=== PATIENT | female | born 1945 | race Caucasian/White ===

== ENCOUNTER 2016-12-24 15:05 | Inpatient (IN) | payer OTHER ==
[2016-12-24] MEDS ORDERED: CARDIZEM INJ 125 MG VIAL ONE (17:22)
[2016-12-24] MEDS ORDERED: NS 100 ML IV 100 ML IV ONE (17:22)
[2016-12-24] MEDS ORDERED: CARDIZEM INJ 50 MG VIAL ONE (17:29)
[2016-12-24] MEDS ORDERED: CARDIZEM INJ 50 MG VIAL IVP ONE (17:39)
[2016-12-24] MEDS: NS 1000 ML 1,000 ML IV SCH (17:41)
[2016-12-24] MEDS: CARDIZEM INJ 125 MG VIAL 125 MG in NS 100 ML IV 100 ML IV PRN (17:42)
[2016-12-24 17:48] LABS: BASOPHILS # (AUTO) 0.1 X10^3/uL (0.0-0.1); EOSINOPHILS % (AUTO) 0.7 % (0.9-2.9); HEMATOCRIT 32.1 % (36.0-47.0); LYMPHOCYTES # (AUTO) 0.9 X10^3/uL (1.3-2.9); LYMPHOCYTES % (AUTO) 16.6 % (21.0-51.0); MEAN CORPUSCULAR HEMOGLOBIN 24.5 pg (27.0-34.0); MEAN CORPUSCULAR HGB CONC 31.2 g/dL (33.0-35.0); MEAN CORPUSCULAR VOLUME 78.5 fL (80.0-100.0); MEAN PLATELET VOLUME 8.8 fL (7.4-11.0); MONOCYTES # (AUTO) 0.4 x10^3/uL (0.3-0.8); MONOCYTES % (AUTO) 7.6 % (0.0-13.0); NEUTROPHILS # (AUTO) 4.2 x10^3/uL (2.2-4.8); NEUTROPHILS % (AUTO) 74.1 % (42.0-75.0); PLATELET COUNT 190 X10^3/uL (150.0-450.0); RED BLOOD COUNT 4.09 X10^6/uL (3.5-5.4); RED CELL DISTRIBUTION WIDTH 24.2 % (11.6-16.5); WHITE BLOOD COUNT 5.7 X10^3/uL (3.6-10.0)
[2016-12-24 18:05] LABS: ALANINE AMINOTRANSFERASE 23 Units/L (12-78); ALBUMIN 2.8 g/dL (3.4-5.0); ALKALINE PHOSPHATASE 72 Units/L (46-116); ASPARTATE AMINO TRANSFERASE 26 Units/L (15-37); BLOOD UREA NITROGEN 15 mg/dL (7-18); CARBON DIOXIDE 30.7 mmol/L (21-32); CHLORIDE 103 mmol/L (98-107); CKMB % 2.7 % (<4); CREATINE KINASE 37 Units/L (26-192); CREATINE KINASE MB < 1.0 ng/mL (0-4.0); CREATININE 0.92 mg/dL (0.55-1.02); GLUCOSE 86 mg/dL (65-99); SODIUM 141 mmol/L (136-145); TOTAL PROTEIN 7.7 g/dL (6.4-8.2); TROPONIN I 0.19 ng/mL (0-1.5); eGFR BLACK RACES > 60 (>60); eGFR NON BLACK RACES > 60 (>60)
[2016-12-24 18:08] LABS: ANISOCYTOSIS 1+; PLATELET MORPHOLOGY COMMENT NORMAL (NORMAL); POIKILOCYTOSIS SLIGHT
[2016-12-24 18:35] VITALS: BMI 27.0
[2016-12-24] MEDS ORDERED: K-DUR TAB 20 MEQ PO PRN (18:40)
[2016-12-24] MEDS ORDERED: POTASSIUM CHLORIDE LIQ 20 MEQ UDC PO PRN (18:40)
[2016-12-24] MEDS ORDERED: K-RIDER 10 MEQ/NS 100 ML 10 MEQ/100 ML BAG IV PRN (18:40)
--- NOTE | 2016-12-24 19:05 | RAD ---
HISTORY: Atrial flutter Study: PA and lateral views of the chest. Comparison: None. Findings: Cardiomegaly. No focal consolidations, pleural effusions or pneumothorax. Osseous structures demonst rate no acute abnormality. Hyperexpansion. IMPRESSION: 1. No acute cardiopulmonary process. 2. Cardiomegaly. 3. Findings consistent with COPD. Reported By:
[2016-12-24] MEDS ORDERED: NEXTERONE IV 150 MG PREMIX* 100 ML IV ONE (20:48)
[2016-12-24] MEDS ORDERED: NEXTERONE IV 360 MG PREMIX* 200 ML IV PRN (20:49)
[2016-12-24] MEDS: K-LYTE EFFERVESCENT PO PRN (21:38)
[2016-12-24] MEDS: PROVENTIL NEB TX 0.083% 2.5MG/ 3ML NEB SCH (22:52)
[2016-12-24] MEDS: NORCO 5/325 MG TAB PO PRN (23:07)
[2016-12-24] MEDS: RESTORIL CAP 15 MG PO PRN (23:07)
[2016-12-24] MEDS: ROBITUSSIN DM PO PRN (23:25)
[2016-12-24 23:39] LABS: CKMB % 2.9 % (<4); CREATINE KINASE 35 Units/L (26-192); CREATINE KINASE MB < 1.0 ng/mL (0-4.0)
[2016-12-25] MEDS: NORCO 5/325 MG TAB PO PRN ×3 (05:25→20:28)
[2016-12-25] MEDS: NS 1000 ML 1,000 ML IV SCH ×3 (05:26→20:29)
[2016-12-25] MEDS: NEXTERONE IV 360 MG PREMIX* 200 ML IV PRN ×2 (05:31→15:12)
[2016-12-25] MEDS: CARDIZEM INJ 125 MG VIAL 125 MG in NS 100 ML IV 100 ML IV PRN ×4 (05:39→20:21)
[2016-12-25] MEDS ORDERED: NEXTERONE IV 360 MG PREMIX* 200 ML IV ONE (05:42)
[2016-12-25 06:22] LABS: BASOPHILS % (AUTO) 0.6 % (0.2-1.0); EOSINOPHILS % (AUTO) 0.6 % (0.9-2.9); HEMATOCRIT 29.8 % (36.0-47.0); HEMOGLOBIN 9.4 g/dL (12.0-16.0); LYMPHOCYTES # (AUTO) 0.9 X10^3/uL (1.3-2.9); LYMPHOCYTES % (AUTO) 14.9 % (21.0-51.0); MEAN CORPUSCULAR HEMOGLOBIN 25.4 pg (27.0-34.0); MEAN CORPUSCULAR HGB CONC 31.5 g/dL (33.0-35.0); MEAN CORPUSCULAR VOLUME 80.6 fL (80.0-100.0); MEAN PLATELET VOLUME 9.1 fL (7.4-11.0); MONOCYTES # (AUTO) 0.5 x10^3/uL (0.3-0.8); MONOCYTES % (AUTO) 8.3 % (0.0-13.0); NEUTROPHILS # (AUTO) 4.7 x10^3/uL (2.2-4.8); NEUTROPHILS % (AUTO) 75.6 % (42.0-75.0); PLATELET COUNT 176 X10^3/uL (150.0-450.0); RED BLOOD COUNT 3.69 X10^6/uL (3.5-5.4); RED CELL DISTRIBUTION WIDTH 24.1 % (11.6-16.5); WHITE BLOOD COUNT 6.2 X10^3/uL (3.6-10.0)
[2016-12-25 07:22] LABS: ALANINE AMINOTRANSFERASE 25 Units/L (12-78); ALBUMIN 2.7 g/dL (3.4-5.0); ALKALINE PHOSPHATASE 66 Units/L (46-116); ASPARTATE AMINO TRANSFERASE 28 Units/L (15-37); BLOOD UREA NITROGEN 16 mg/dL (7-18); CALCIUM 8.4 mg/dL (8.5-10.1); CARBON DIOXIDE 27.8 mmol/L (21-32); CHLORIDE 103 mmol/L (98-107); CKMB % 2.9 % (<4); COR CA(FOR HYPOALB) 9.4 mg/dL (8.5-10.1); CREATINE KINASE 35 Units/L (26-192); CREATINE KINASE MB < 1.0 ng/mL (0-4.0); CREATININE 1.01 mg/dL (0.55-1.02); GLUCOSE 105 mg/dL (65-99); SODIUM 140 mmol/L (136-145); TOTAL PROTEIN 7.5 g/dL (6.4-8.2); eGFR BLACK RACES > 60 (>60); eGFR NON BLACK RACES 58 (>60)
[2016-12-25 07:32] LABS: ANISOCYTOSIS 3+; HYPOCHROMASIA SLIGHT; PLATELET MORPHOLOGY COMMENT NORMAL (NORMAL)
[2016-12-25] MEDS: K-LYTE EFFERVESCENT PO PRN ×2 (09:16→09:19)
[2016-12-25] MEDS: PROVENTIL NEB TX 0.083% 2.5MG/ 3ML NEB SCH ×4 (09:24→22:12)
[2016-12-25] MEDS: ROBITUSSIN DM PO PRN ×2 (12:30→20:30)
[2016-12-25] MEDS ORDERED: MIRAPEX TAB 0.25 MG PO SCH (16:00)
[2016-12-25] MEDS ORDERED: LASIX ONE (16:49)
[2016-12-25] MEDS: CELEXA PO SCH (16:52)
[2016-12-25] MEDS: ELIQUIS PO SCH ×3 (16:52→20:32)
[2016-12-25] MEDS: LASIX PO SCH (16:53)
[2016-12-25] MEDS: FERROUS SULFATE PO SCH ×2 (16:53→20:25)
[2016-12-25] MEDS: MIRAPEX TAB 0.25 MG PO SCH (20:24)
[2016-12-25] MEDS: RESTORIL CAP 15 MG PO PRN (20:25)
[2016-12-25] MEDS: REQUIP PO SCH (20:26)
[2016-12-25] MEDS ORDERED: CORDARONE TAB 200 MG PO ONE (21:00)
[2016-12-26] MEDS: NS 1000 ML 1,000 ML IV SCH ×3 (01:04→21:19)
[2016-12-26] MEDS ORDERED: ZOFRAN INJ 4 MG VIAL IVP PRN (05:09)
[2016-12-26] MEDS ORDERED: PHENERGAN INJ 25 MG IV PRN (07:32)
[2016-12-26] MEDS: PROVENTIL NEB TX 0.083% 2.5MG/ 3ML NEB SCH ×4 (08:19→20:45)
[2016-12-26] MEDS ORDERED: ZOFRAN TAB 4 MG PO PRN (08:58)
[2016-12-26] MEDS ORDERED: CELEXA PO SCH (09:00)
[2016-12-26] MEDS ORDERED: PRAMIPEXOLE DIHYDROCHLORIDE PO SCH (09:00)
[2016-12-26] MEDS ORDERED: PATIENT'S HOME MEDICATION (Ferrous Sulfate [Ferrous Sulfate] 1 TAB) PO SCH (09:00)
[2016-12-26] MEDS ORDERED: CORDARONE TAB 200 MG PO SCH (09:00)
[2016-12-26] MEDS ORDERED: ELIQUIS PO SCH (09:00)
[2016-12-26] MEDS ORDERED: PATIENT'S HOME MEDICATION (Potassium Chloride [K-Tab] 1 TAB) PO SCH (09:00)
[2016-12-26] MEDS ORDERED: LASIX PO SCH (09:00)
[2016-12-26] MEDS: MICRO K EXTEN CAP 10 MEQ PO SCH (09:56)
[2016-12-26] MEDS: ELIQUIS PO SCH ×2 (09:57→21:20)
[2016-12-26] MEDS: CORDARONE TAB 200 MG PO SCH (09:57)
[2016-12-26] MEDS: CELEXA PO SCH (09:57)
[2016-12-26] MEDS: COREG TAB 6.25 MG PO SCH ×2 (09:57→21:22)
[2016-12-26] MEDS: FERROUS SULFATE PO SCH ×2 (09:57→21:23)
[2016-12-26] MEDS: LASIX PO SCH (09:57)
[2016-12-26] MEDS ORDERED: FERROUS SULFATE PO SCH (10:00)
[2016-12-26] MEDS: MIRAPEX TAB 0.25 MG PO SCH ×2 (10:01→21:20)
[2016-12-26] MEDS ORDERED: VERSED ONE ×2 (13:21→13:22)
[2016-12-26] MEDS ORDERED: VERSED IVP ONE ×2 (13:30→13:34)
[2016-12-26] MEDS: REQUIP PO SCH (21:19)
[2016-12-26] MEDS: ROBITUSSIN DM PO PRN (21:19)
[2016-12-26] MEDS: RESTORIL CAP 15 MG PO PRN (21:21)
[2016-12-26] MEDS: ZANTAC PO SCH (21:22)
[2016-12-26] MEDS: NORCO 5/325 MG TAB PO PRN (21:23)
[2016-12-27] MEDS ORDERED: PROVENTIL NEB TX 0.083% 2.5MG/ 3ML NEB ONE (00:47)
[2016-12-27 05:47] LABS: ALANINE AMINOTRANSFERASE 26 Units/L (12-78); ALBUMIN 2.6 g/dL (3.4-5.0); ALKALINE PHOSPHATASE 82 Units/L (46-116); ASPARTATE AMINO TRANSFERASE 29 Units/L (15-37); BLOOD UREA NITROGEN 14 mg/dL (7-18); CALCIUM 8.1 mg/dL (8.5-10.1); CARBON DIOXIDE 28.8 mmol/L (21-32); CHLORIDE 103 mmol/L (98-107); COR CA(FOR HYPOALB) 9.2 mg/dL (8.5-10.1); CREATININE 1.15 mg/dL (0.55-1.02); GLUCOSE 107 mg/dL (65-99); SODIUM 137 mmol/L (136-145); TOTAL PROTEIN 7.6 g/dL (6.4-8.2); eGFR BLACK RACES > 60 (>60); eGFR NON BLACK RACES 50 (>60)
[2016-12-27 05:48] LABS: BASOPHILS # (AUTO) 0.1 X10^3/uL (0.0-0.1); BASOPHILS % (AUTO) 0.9 % (0.2-1.0); EOSINOPHILS # (AUTO) 0.1 x10^3/uL (0.0-0.2); EOSINOPHILS % (AUTO) 1.7 % (0.9-2.9); HEMOGLOBIN 9.2 g/dL (12.0-16.0); LYMPHOCYTES # (AUTO) 0.7 X10^3/uL (1.3-2.9); LYMPHOCYTES % (AUTO) 11.9 % (21.0-51.0); MEAN CORPUSCULAR HEMOGLOBIN 24.9 pg (27.0-34.0); MEAN CORPUSCULAR HGB CONC 30.7 g/dL (33.0-35.0); MEAN CORPUSCULAR VOLUME 81.1 fL (80.0-100.0); MEAN PLATELET VOLUME 8.9 fL (7.4-11.0); MONOCYTES # (AUTO) 0.5 x10^3/uL (0.3-0.8); MONOCYTES % (AUTO) 8.2 % (0.0-13.0); NEUTROPHILS # (AUTO) 4.5 x10^3/uL (2.2-4.8); NEUTROPHILS % (AUTO) 77.3 % (42.0-75.0); PLATELET COUNT 169 X10^3/uL (150.0-450.0); RED CELL DISTRIBUTION WIDTH 23.6 % (11.6-16.5); WHITE BLOOD COUNT 5.8 X10^3/uL (3.6-10.0)
[2016-12-27 06:31] LABS: ANISOCYTOSIS 2+; PLATELET MORPHOLOGY COMMENT NORMAL (NORMAL)
[2016-12-27] MEDS: NS 1000 ML 1,000 ML IV SCH ×2 (06:50→17:54)
[2016-12-27] MEDS ORDERED: MICRO K EXTEN CAP 10 MEQ PO SCH (09:00)
[2016-12-27] MEDS: PROVENTIL NEB TX 0.083% 2.5MG/ 3ML NEB SCH ×4 (09:20→21:29)
[2016-12-27] MEDS: MICRO K EXTEN CAP 10 MEQ PO SCH (09:22)
[2016-12-27] MEDS: ELIQUIS PO SCH ×2 (09:22→21:05)
[2016-12-27] MEDS: FERROUS SULFATE PO SCH ×2 (09:22→21:04)
[2016-12-27] MEDS: LASIX PO SCH (09:22)
[2016-12-27] MEDS: COREG TAB 6.25 MG PO SCH ×2 (09:22→21:07)
[2016-12-27] MEDS: CORDARONE TAB 200 MG PO SCH (09:23)
[2016-12-27] MEDS: CELEXA PO SCH (09:23)
[2016-12-27] MEDS: MIRAPEX TAB 0.25 MG PO SCH ×2 (09:23→21:07)
[2016-12-27] MEDS: NORCO 5/325 MG TAB PO PRN ×2 (09:27→21:07)
[2016-12-27] MEDS: RESTORIL CAP 15 MG PO PRN (21:04)
[2016-12-27] MEDS: REQUIP PO SCH (21:04)
[2016-12-27] MEDS: ROBITUSSIN DM PO PRN (21:05)
[2016-12-27] MEDS: ZANTAC PO SCH (21:05)
[2016-12-28 05:22] LABS: BASOPHILS # (AUTO) 0.1 X10^3/uL (0.0-0.1); BASOPHILS % (AUTO) 1.1 % (0.2-1.0); EOSINOPHILS # (AUTO) 0.1 x10^3/uL (0.0-0.2); EOSINOPHILS % (AUTO) 1.5 % (0.9-2.9); HEMATOCRIT 29.2 % (36.0-47.0); LYMPHOCYTES # (AUTO) 0.7 X10^3/uL (1.3-2.9); LYMPHOCYTES % (AUTO) 11.8 % (21.0-51.0); MEAN CORPUSCULAR HGB CONC 30.7 g/dL (33.0-35.0); MEAN CORPUSCULAR VOLUME 81.5 fL (80.0-100.0); MEAN PLATELET VOLUME 8.8 fL (7.4-11.0); MONOCYTES # (AUTO) 0.4 x10^3/uL (0.3-0.8); MONOCYTES % (AUTO) 7.6 % (0.0-13.0); NEUTROPHILS # (AUTO) 4.3 x10^3/uL (2.2-4.8); PLATELET COUNT 151 X10^3/uL (150.0-450.0); RED BLOOD COUNT 3.59 X10^6/uL (3.5-5.4); RED CELL DISTRIBUTION WIDTH 23.3 % (11.6-16.5); WHITE BLOOD COUNT 5.5 X10^3/uL (3.6-10.0)
[2016-12-28 05:32] LABS: ALANINE AMINOTRANSFERASE 27 Units/L (12-78); ALBUMIN 2.6 g/dL (3.4-5.0); ALKALINE PHOSPHATASE 92 Units/L (46-116); ASPARTATE AMINO TRANSFERASE 28 Units/L (15-37); BLOOD UREA NITROGEN 16 mg/dL (7-18); CALCIUM 8.3 mg/dL (8.5-10.1); CARBON DIOXIDE 29.5 mmol/L (21-32); CHLORIDE 104 mmol/L (98-107); COR CA(FOR HYPOALB) 9.4 mg/dL (8.5-10.1); CREATININE 1.17 mg/dL (0.55-1.02); GLUCOSE 105 mg/dL (65-99); SODIUM 138 mmol/L (136-145); TOTAL PROTEIN 7.4 g/dL (6.4-8.2); eGFR BLACK RACES 59 (>60); eGFR NON BLACK RACES 49 (>60)
[2016-12-28 06:46] LABS: ANISOCYTOSIS 2+; PLATELET MORPHOLOGY COMMENT NORMAL (NORMAL)
[2016-12-28] MEDS: MICRO K EXTEN CAP 10 MEQ PO SCH (08:55)
[2016-12-28] MEDS: ROBITUSSIN DM PO PRN (08:55)
[2016-12-28] MEDS: FERROUS SULFATE PO SCH (08:56)
[2016-12-28] MEDS: CELEXA PO SCH (08:56)
[2016-12-28] MEDS: NORCO 5/325 MG TAB PO PRN (08:56)
[2016-12-28] MEDS: CORDARONE TAB 200 MG PO SCH (08:57)
[2016-12-28] MEDS: COREG TAB 6.25 MG PO SCH (08:58)
[2016-12-28] MEDS: MIRAPEX TAB 0.25 MG PO SCH (08:58)
[2016-12-28] MEDS: LASIX PO SCH (08:58)
[2016-12-28] MEDS: ELIQUIS PO SCH (09:04)
[2016-12-28] MEDS: PROVENTIL NEB TX 0.083% 2.5MG/ 3ML NEB SCH ×2 (09:32→12:07)
[2016-12-28 10:54] VITALS: BP 124/83
--- NOTE | 2017-01-16 21:35 | DR.H&P ---
H&P - History & Physical for Day of: H&P Date: 12/24/16 - Chief Complaint Chief Complaint: CHest discomfort - Allergies Allergies/Adverse Reactions: Allergies Allergy/AdvReac Type Severity Reaction Status Date / Time No Known Drug Allergy Allergy Verified 12/24/16 16:46 - History of Present Illness History of Present Illness: The patient is a 71yo female who presents with chest discomfort. Patient is noted to have atrial flutter. - Past Medical History Past Medical History: Arthritis, CHF, COPD, Coronary Artery Disease, Dyslipidemia, GERD, Hypertension - Past Surgical History Surgical History: Hysterectomy, Ortho Surgery, Tonsillectomy, Other Additional Surgical History: Cataract surgery - Family History Family Medical History: Diabetes Mellitus, Cancer, Hypertension - Social History Does patient currently use any type of tobacco product: Yes Have you used tobacco products in the last 12 months: Yes Type of Tobacco Use: Cigarettes Alcohol Use: None Drug Use: None - Medications Home Medications: Amiodarone HCl [CORDARONE tab 200 mg *] 1 tab PO DAILY 12/25/16 [History Confirmed 12/25/16] Carvedilol [COREG TAB 6.25 MG *] 1 tab PO BID 12/25/16 [History Confirmed ] Citalopram 20 mg Tab [CELEXA 20 MG *] 1 tab PO DAILY 12/25/16 [History Confirmed 12/25/16] Ferrous Sulfate 1 tab PO BID 12/25/16 [History Confirmed 12/25/16] Furosemide [LASIX TAB 40 MG *] 1 tab PO DAILY 12/25/16 [History Confirmed ] Hydrocodone-Acetaminophen [[place] 5-325 mg] 1 tab PO BID PRN 12/25/16 [History Confirmed 12/25/16] Lisinopril [ZESTRIL *] 1 tab PO DAILY 12/25/16 [History Confirmed 12/25/16] Ondansetron HCl [ZOFRAN TAB 4 MG *] 1 tab PO Q6H PRN 12/25/16 [History Confirmed 12/25/16] Potassium Chloride [K-Tab] 1 tab PO DAILY 12/25/16 [History Confirmed 12/25/16] Pramipexole Dihydrochloride [Pramipexole Dihydrochlori] 1 tab PO DAILY 12/25/16 [History Confirmed 12/25/16] Ranitidine HCl [ZANTAC TAB 150 MG *] 1 tab PO HS 12/25/16 [History Confirmed 08/01] Ropinirole HCl [REQUIP 0.25 MG *] 0.5 mg PO HS 12/25/16 [History Confirmed 12/25] - Review of Systems Constitutional: Weakness Eyes: No Symptoms Reported ENT: No Symptoms Reported Respiratory: Shortness of Breath Cardiovascular: Chest Pain, Palpitations, Orthopnea Gastrointestinal: No Symptoms Reported Genitourinary: No Symptoms Reported Musculoskeletal: No Symptoms Reported Skin: No Symptoms Reported Neurological: No Symptoms Reported - Physical Exam Vital Signs: Temperature 97.9 F Pulse Rate [Apical] 62 Pulse Rate 68 Respiratory Rate 22 Blood Pressure [Right Arm] 124/83 O2 Sat by Pulse Oximetry 95 Oriented: Normal Eyes: Normal Ear: Normal Nose: Normal Throat: Normal Respiratory: Clear Throughout Cardiovascular: Other (A Flutter) : Normal Auscultation: Bowel Sounds: Normal Palpation: Normal Tenderness: Normal Skin: Normal Musculoskeletal: Normal Psychiatric: Normal Mood Description: Calm Affect: Normal Speech Pattern: Clear - Assessment/Plan (1) Atrial flutter Qualifiers: Atrial flutter type: A Status: Acute Plan: Telemetry. EKG. See EMR for orders. (2) HTN (hypertension) Qualifiers: Hypertension type: essential hypertension Qualified Code(s): I10 - Essential (primary) hypertension Status: Chronic Plan: MOnitor BP. Antihypertensives as needed. (3) Hypokalemia Status: Acute Plan: Potassium replacement. BMP daily.
--- NOTE | 2017-01-16 21:43 | PCM.PROG ---
Progress Note - Progress Note for Day of Date: 12/25/16 - Subjective Subjective: The patient is a 71yo female who was admitted with atrial fibrillation. Patient continues to feel weak. No nwe complaints. - Past Medical Family Social History Past Med/Fam/Surg Hx: No changes since H&P Allergies: Allergies No Known Drug Allergy Allergy (Verified 12/24/16 16:46) - Review of Systems ROS: No change since H&P - Vital Signs and I&O's Vital Signs: Temperature 97.9 F Pulse Rate [Apical] 62 Pulse Rate 68 Respiratory Rate 22 Blood Pressure [Right Arm] 124/83 O2 Sat by Pulse Oximetry 95 - Physical Exam Oriented: Normal Eyes: Normal Ear: Normal Nose: Normal Throat: Normal Respiratory: Normal Cardiovascular: Irregular, Other (Atrial FIb) : Normal Auscultation: Bowel Sounds: Normal Tenderness: Normal Skin: Normal Musculoskeletal: Normal Psychiatric: Normal Mood Description: Calm Affect: Normal Speech Pattern: Clear - Laboratory and Diagnostics Result Diagrams: 12/28/16 04:30 12/28/16 04:30 Labs: Laboratory WBC 5.5 X10^3/uL (3.6-10.0) 12/28/16 04:30 RBC 3.59 X10^6/uL (3.5-5.4) 12/28/16 04:30 Hgb 9.0 g/dL (12.0-16.0) L 12/28/16 04:30 Hct 29.2 % (36.0-47.0) L 12/28/16 04:30 MCV 81.5 fL (80.0-100.0) 12/28/16 04:30 MCH 25.0 pg (27.0-34.0) L 12/28/16 04:30 MCHC 30.7 g/dL (33.0-35.0) L 12/28/16 04:30 RDW 23.3 % (11.6-16.5) H 12/28/16 04:30 Plt Count 151 X10^3/uL (150.0-450.0) 12/28/16 04:30 Plt Count Comment Adequate (ADEQUATE) 12/28/16 04:30 MPV 8.8 fL (7.4-11.0) 12/28/16 04:30 Neut % 78.0 % (42.0-75.0) H 12/28/16 04:30 Lymph % 11.8 % (21.0-51.0) L 12/28/16 04:30 [place] % 7.6 % (0.0-13.0) 12/28/16 04:30 Eos % 1.5 % (0.9-2.9) 12/28/16 04:30 Baso % 1.1 % (0.2-1.0) H 12/28/16 04:30 Neut # 4.3 x10^3/uL (2.2-4.8) 12/28/16 04:30 Lymph # 0.7 X10^3/uL (1.3-2.9) L 12/28/16 04:30 [place] # 0.4 x10^3/uL (0.3-0.8) 12/28/16 04:30 Eos # 0.1 x10^3/uL (0.0-0.2) 12/28/16 04:30 Baso # 0.1 X10^3/uL (0.0-0.1) 12/28/16 04:30 Absolute Nucleated RBC 0.5 /100WBC 12/28/16 04:30 Plt Morphology Comment Normal (NORMAL) 12/28/16 04:30 RBC Morphology Abnormal (NORMAL) A 12/28/16 04:30 Hypochromasia Slight A 12/25/16 03:35 Poikilocytosis Slight A 12/24/16 17:25 Anisocytosis 2+ A 12/28/16 04:30 Sodium 138 mmol/L (136-145) 12/28/16 04:30 Corrected Sodium TNP 12/28/16 04:30 Potassium 3.5 mmol/L (3.5-5.1) 12/28/16 04:30 Chloride 104 mmol/L (98-107) 12/28/16 04:30 Carbon Dioxide 29.5 mmol/L (21-32) 12/28/16 04:30 BUN 16 mg/dL (7-18) 12/28/16 04:30 Creatinine 1.17 mg/dL (0.55-1.02) H 12/28/16 04:30 Est GFR (MDRD) Af Amer 59 (>60) 12/28/16 04:30 Est GFR (MDRD) Non-Af 49 (>60) L 12/28/16 04:30 Glucose 105 mg/dL (65-99) H 12/28/16 04:30 Calcium 8.3 mg/dL (8.5-10.1) L 12/28/16 04:30 Corrected Calcium 9.4 mg/dL (8.5-10.1) 12/28/16 04:30 Magnesium 2.0 mg/dL (1.7-2.9) 12/24/16 17:25 Total Bilirubin 0.90 mg/dL (0.2-1.0) 12/28/16 04:30 AST 28 Units/L (15-37) 12/28/16 04:30 ALT 27 Units/L (12-78) 12/28/16 04:30 Alkaline Phosphatase 92 Units/L (46-116) 12/28/16 04:30 Creatine Kinase 35 Units/L (26-192) 12/25/16 03:35 CK-MB (CK-2) < 1.0 ng/mL (0-4.0) 12/25/16 03:35 CK/CKMB % Calc 2.9 % (<4) 12/25/16 03:35 Troponin I 0.20 ng/mL (0-1.5) 12/25/16 03:35 Total Protein 7.4 g/dL (6.4-8.2) 12/28/16 04:30 Albumin 2.6 g/dL (3.4-5.0) L 12/28/16 04:30 Globulin 4.8 g/dL (2.5-4.5) H 12/28/16 04:30 Albumin/Globulin Ratio 0.5 Ratio (1.1-2.1) L 12/28/16 04:30 - Plan (1) HTN (hypertension) Status: Chronic Qualifiers: Hypertension type: essential hypertension Qualified Code(s): I10 - Essential (primary) hypertension Plan: MOnitor BP. Antihypertensives as needed. (2) Hypokalemia Status: Acute Plan: Potassium replacement. BMP daily. (3) Atrial fibrillation Status: Acute Qualifiers: Atrial fibrillation type: A Plan: Continue with monitoring and antiarrhtymics.
--- NOTE | 2017-01-16 21:46 | PCM.PROG ---
Progress Note - Progress Note for Day of Date: 12/26/16 - Subjective Subjective: The patient is a 71yo female who was admitted with atrial fibrillation. Patient continues to feel weak. No new complaints. - Past Medical Family Social History Past Med/Fam/Surg Hx: No changes since H&P Allergies: Allergies No Known Drug Allergy Allergy (Verified 12/24/16 16:46) - Review of Systems ROS: No change since H&P - Vital Signs and I&O's Vital Signs: Temperature 97.9 F Pulse Rate [Apical] 62 Pulse Rate 68 Respiratory Rate 22 Blood Pressure [Right Arm] 124/83 O2 Sat by Pulse Oximetry 95 - Physical Exam Oriented: Normal Eyes: Normal Ear: Normal Nose: Normal Throat: Normal Respiratory: Normal Cardiovascular: Irregular, Other (Atrial FIb) : Normal Auscultation: Bowel Sounds: Normal Tenderness: Normal Skin: Normal Musculoskeletal: Normal Psychiatric: Normal Mood Description: Calm Affect: Normal Speech Pattern: Clear - Laboratory and Diagnostics Result Diagrams: 12/28/16 04:30 12/28/16 04:30 Labs: Laboratory WBC 5.5 X10^3/uL (3.6-10.0) 12/28/16 04:30 RBC 3.59 X10^6/uL (3.5-5.4) 12/28/16 04:30 Hgb 9.0 g/dL (12.0-16.0) L 12/28/16 04:30 Hct 29.2 % (36.0-47.0) L 12/28/16 04:30 MCV 81.5 fL (80.0-100.0) 12/28/16 04:30 MCH 25.0 pg (27.0-34.0) L 12/28/16 04:30 MCHC 30.7 g/dL (33.0-35.0) L 12/28/16 04:30 RDW 23.3 % (11.6-16.5) H 12/28/16 04:30 Plt Count 151 X10^3/uL (150.0-450.0) 12/28/16 04:30 Plt Count Comment Adequate (ADEQUATE) 12/28/16 04:30 MPV 8.8 fL (7.4-11.0) 12/28/16 04:30 Neut % 78.0 % (42.0-75.0) H 12/28/16 04:30 Lymph % 11.8 % (21.0-51.0) L 12/28/16 04:30 [place] % 7.6 % (0.0-13.0) 12/28/16 04:30 Eos % 1.5 % (0.9-2.9) 12/28/16 04:30 Baso % 1.1 % (0.2-1.0) H 12/28/16 04:30 Neut # 4.3 x10^3/uL (2.2-4.8) 12/28/16 04:30 Lymph # 0.7 X10^3/uL (1.3-2.9) L 12/28/16 04:30 [place] # 0.4 x10^3/uL (0.3-0.8) 12/28/16 04:30 Eos # 0.1 x10^3/uL (0.0-0.2) 12/28/16 04:30 Baso # 0.1 X10^3/uL (0.0-0.1) 12/28/16 04:30 Absolute Nucleated RBC 0.5 /100WBC 12/28/16 04:30 Plt Morphology Comment Normal (NORMAL) 12/28/16 04:30 RBC Morphology Abnormal (NORMAL) A 12/28/16 04:30 Hypochromasia Slight A 12/25/16 03:35 Poikilocytosis Slight A 12/24/16 17:25 Anisocytosis 2+ A 12/28/16 04:30 Sodium 138 mmol/L (136-145) 12/28/16 04:30 Corrected Sodium TNP 12/28/16 04:30 Potassium 3.5 mmol/L (3.5-5.1) 12/28/16 04:30 Chloride 104 mmol/L (98-107) 12/28/16 04:30 Carbon Dioxide 29.5 mmol/L (21-32) 12/28/16 04:30 BUN 16 mg/dL (7-18) 12/28/16 04:30 Creatinine 1.17 mg/dL (0.55-1.02) H 12/28/16 04:30 Est GFR (MDRD) Af Amer 59 (>60) 12/28/16 04:30 Est GFR (MDRD) Non-Af 49 (>60) L 12/28/16 04:30 Glucose 105 mg/dL (65-99) H 12/28/16 04:30 Calcium 8.3 mg/dL (8.5-10.1) L 12/28/16 04:30 Corrected Calcium 9.4 mg/dL (8.5-10.1) 12/28/16 04:30 Magnesium 2.0 mg/dL (1.7-2.9) 12/24/16 17:25 Total Bilirubin 0.90 mg/dL (0.2-1.0) 12/28/16 04:30 AST 28 Units/L (15-37) 12/28/16 04:30 ALT 27 Units/L (12-78) 12/28/16 04:30 Alkaline Phosphatase 92 Units/L (46-116) 12/28/16 04:30 Creatine Kinase 35 Units/L (26-192) 12/25/16 03:35 CK-MB (CK-2) < 1.0 ng/mL (0-4.0) 12/25/16 03:35 CK/CKMB % Calc 2.9 % (<4) 12/25/16 03:35 Troponin I 0.20 ng/mL (0-1.5) 12/25/16 03:35 Total Protein 7.4 g/dL (6.4-8.2) 12/28/16 04:30 Albumin 2.6 g/dL (3.4-5.0) L 12/28/16 04:30 Globulin 4.8 g/dL (2.5-4.5) H 12/28/16 04:30 Albumin/Globulin Ratio 0.5 Ratio (1.1-2.1) L 12/28/16 04:30 - Plan (1) HTN (hypertension) Status: Chronic Qualifiers: Hypertension type: essential hypertension Qualified Code(s): I10 - Essential (primary) hypertension Plan: MOnitor BP. Antihypertensives as needed. (2) Hypokalemia Status: Acute Plan: Potassium replacement as needed. BMP daily. (3) Atrial fibrillation Status: Acute Qualifiers: Atrial fibrillation type: A Plan: Continue with monitoring and antiarrhtymics.
== END 2016-12-28 15:30 | disposition home or self-care (01) | DRG 310 ==
LOC: ICU 15:05
PROVIDERS: ADMIT Internal Medicine; ATTEND Internal Medicine
PROC: 5A2204Z Restoration of Cardiac Rhythm, Single (ICD-10-PCS; principal; 2016-12-26)
DX: I48.92 Unspecified atrial flutter (principal); I48.91 Unspecified atrial fibrillation; R07.89 Other chest pain; I10 Essential (primary) hypertension; E87.6 Hypokalemia
CPT/HCPCS: 36415; 71020; 80053; 82550; 82553; 83735; 84132; 84484; 85025; 93005; 93010; 94640; A4222; J2250; J2405; J3490; J7613